=== PATIENT | female | born 1960 | race Caucasian/White ===

== ENCOUNTER → 2016-12-23 | Outpatient (CLI) | payer BC ==
[~2016-12-23] MED LIST: ATEN-173 PO; BUPRTAB51 PO; CALC1TAB27 PO; MISCCAP80 PO; MULTTAB58 PO; NUTRTAB48 PO; OMEG-27 PO; OMEP20CA59 PO
== END | disposition home or self-care (01) ==
LOC: C.CPL 15:03
PROVIDERS: ATTEND Orthopaedic Surgery Sports Medicine
DX: M75.41 Impingement syndrome of right shoulder (principal)

== ENCOUNTER → 2017-03-06 | Outpatient (CLI) | payer BC ==
[~2017-03-06] VITALS: Ht 156.2 cm; Wt 80.5 kg
[2017-03-06 14:34] VITALS: BP 111/74; PULSE 64; Ht 156.2 cm; Wt 80.5 kg
== END | disposition home or self-care (01) ==
LOC: C.NEUR 13:46
PROVIDERS: ATTEND Physician Assistant
DX: G47.33 Obstructive sleep apnea (adult) (pediatric) (principal)

== ENCOUNTER → 2017-05-18 | Outpatient (CLI) | payer BC ==
[2017-05-18 10:15] LABS: ESTIMATED AVERAGE GLUCOSE 114 mg/dl; HA1C FLAG Normal (Normal)
[2017-05-18 10:30] LABS: ALT/SGPT 27 U/L (12-78); BLOOD UREA NITROGEN 18 mg/dl (7-18); BUN/CREATININE RATIO 19.3 (10-20); CALCIUM 8.9 mg/dl (8.5-10.1); CARBON DIOXIDE 28 mmol/L (21-32); CHLORIDE 106 mmol/L (98-107); CHOLESTEROL 214 mg/dl (0-200); CREATININE 0.92 mg/dl (0.60-1.20); GLUCOSE 96 mg/dl (70-99); POTASSIUM 4.1 mmol/L (3.5-5.1); SODIUM 139 mmol/L (136-145)
[2017-05-18 10:41] LABS: ALKALINE PHOSPHATASE 62 U/L (45-117); AST/SGOT 11 U/L (15-37); CHOLESTEROL/HDL RATIO 3.8; HDL CHOLESTEROL 56 mg/dl; LDL CHOLESTEROL CALCULATED 139 mg/dl; TRIGLYCERIDES 93 mg/dl (0-150); VERY LOW DENSITY LIPOPROT CALC 19 mg/dl
== END | disposition home or self-care (01) ==
LOC: C.LAB1850 09:09
PROVIDERS: ATTEND Family Medicine
DX: I10 Essential (primary) hypertension (principal); R73.01 Impaired fasting glucose

== ENCOUNTER → 2017-05-26 | Outpatient (CLI) | payer BC ==
--- NOTE | 2017-05-26 13:57 | MAMMOGRAPHY REPORT ---
BILATERAL DIGITAL SCREENING MAMMOGRAM TOMOSYNTHESIS WITH CAD: 05/26/2017 CLINICAL HISTORY: Routine screening. Patient has no complaints. TECHNIQUE: Breast tomosynthesis in addition to standard 2D mammography was performed. Current study was also evaluated with a Computer Aided Detection (CAD) system. COMPARISON: Comparison is made to exams dated: 05/05/2016 mammogram, 12/08/2014 mammogram, 11/25/2013 m ammogram, 11/23/2012 mammogram, 11/10/2011 mammogram, and 11/09/2010 mammogram - [facility] nter. BREAST COMPOSITION: There are scattered areas of fibroglandular density in both breasts. FINDINGS: No suspicious masses, calcifications, or areas of architectural distortion are noted in ei ther breast. There has been no significant interval change compared to prior exams. Bilateral asymme tries and bilateral benign-appearing calcifications are not significantly changed. IMPRESSION: ACR BI-RADS CATEGORY 2: BENIGN There is no mammographic evidence of malignancy. A 1 year screening mammogram is recommended. The pa tient will receive written notification of the results. Approximately 10% of breast cancers are not detected with mammography. A negative mammographic report should not delay biopsy if a clinically suggestive mass is present. Natalie Leon M.D. /:05/26/2017 12:22:47 Body Mechanic Apprentice: Shonda DASILVA)(M), [facility] letter sent: Normal 1/2 BI-RADS Code: ACR BI-RADS Category 2: Benign
== END | disposition home or self-care (01) ==
LOC: C.MAMM 09:18
PROVIDERS: ATTEND Family Medicine
DX: Z12.31 Encounter for screening mammogram for malignant neoplasm of breast (principal)

== ENCOUNTER 2017-11-07 12:37 | Emergency (ER) | payer BC, OTHER ==
[~2017-11-07] VITALS: Ht 154.9 cm; Wt 80.0 kg
[2017-11-07 12:59] VITALS: BP 115/75; PULSE 59; TEMP 36.9; O2SAT 95; Ht 154.9 cm; Wt 80.0 kg
[2017-11-07] MEDS ORDERED: IBUPROFEN 600 MG TAB PO STA (13:45)
[2017-11-07] MEDS ORDERED: ACETAMINOPHEN 500 MG TAB PO STA (13:45)
[2017-11-07] MEDS ORDERED: TRAM-10 PO (13:48)
[2017-11-07] MEDS ORDERED: METH4PAK PO (13:48)
--- NOTE | 2017-11-07 14:55 | EMERGENCY ROOM VISIT NOTE ---
History First contact with patient: 13:32 Chief Complaint: LEG PAIN,LEG INJURY Stated Complaint: R LEG LOCKED UP, UNABLE TO STAND, EXTREME PAIN History of Present Illness The patient is a 57 year old female who presents to the Emergency Room with complaints of her right lower extremity being locked up and unable to walk and stand. The patient reports that she has recently been treated for piriformis syndrome. She also reports a history of chronic lower back issues. The patient reports that she has tingling and numbness intermittently extending down the right leg to the foot. She denies any bladder or bowel incontinence, saddle anesthesias or foot drop. The patient reports that she has followed with her PCP for this. Over 2 months ago, she was treated with a Medrol Dosepak with relief. She has not had an MRI of the lumbar spine or other interventional procedures. Patient denies any recent trauma or overuse, and rates her discomfort a 9 out of 10. Review of Systems 10 system review was performed and was negative except for pertinent positives and negatives as indicated in history of present illness Past Medical/Surgical History Medical Problems: (1) Anxiety State Nos (2) Asthma (3) Bronchitis (4) Dysmetabolic Syndrome X (5) Hypertension Nos (6) Lumbago (7) Reflux Esophagitis (8) Sleep Apnea, Unspecified (9) Vitamin D Deficiency, Unspecified Surgical Problems: (1) History of arthroscopy of right shoulder (2) Status post bunionectomy Family History FH: cancer FH: diabetes mellitus FH: hypertension Social History Smoking Status: Never Smoker Alcohol Use: none Drug Use: none Marital Status: Occupation Status: employed Current/Historical Medications Scheduled Atenolol (Tenormin), 12.5 MG PO DAILY Bupropion (Wellbutrin-Xl), 150 MG PO DAILY Xbwepie-Krjkpcixq-Klxb (Calcium Magnesium & Zinc), PO DAILY Methylprednisolone (Medrol Dosepak), 0 PO DAILY Multiple Vitamin (Multivitamin), 1 TAB PO DAILY Nutritional Supplements (Glucosamine Complex), PO DAILY Howard-3 Fatty Acids (Fish Oil), 2 TABS PO DAILY Omeprazole (Prilosec), 20 MG PO DAILY Probiotic Product (Probiotic), 1 CAP PO DAILY Scheduled PRN Tramadol (Ultram), 1-2 TAB PO Q4H PRN for Pain Physical Exam Vital Signs Date Time Temp Pulse Resp B/P (MAP) Pulse Ox O2 Delivery O2 Flow Rate FiO2 11/07/17 12:59 36.9 59 20 115/75 95 Room Air Physical Exam CONSTITUTIONAL: Healthy and well nourished. Alert and oriented X 3 with positive affect. Patient appears in mild discomfort from pain. HEENT: Normocephalic, atraumatic. Pupils equal, round and reactive. NECK: Full active range of motion without discomfort. RESPIRATORY: Clear to auscultation bilaterally with no wheezing, crackles, rhonchi or stridor. CARDIOVASCULAR: Regular rate and rhythm with no murmurs, rubs or gallops. GASTROINTESTINAL: Bowel sounds present in all quadrants. Soft and nontender to palpation. MUSCULOSKELETAL: Examination shows mixed findings that are inconclusive. The patient initially had a positive logroll of the right hip, however when the hip is flexed, internal and external rotation does not worsen discomfort. She has mild tenderness to palpation through the posterior thigh and hamstrings. She has minimal tenderness through the medial joint line of the knee, however no focal findings. Ligamentous exam is normal. Negative straight leg raise. No focal tenderness to palpation over the greater trochanteric region. Pedal pulses are intact. Ankle plantar/dorsiflexion strength is 5 out of 5 and symmetric bilaterally. INTEGUMENTARY: No rash or other significant dermatologic conditions noted. NEUROLOGIC: Cranial nerves II-XII grossly intact. No focal neurologic deficits noted. Right lower extremity is sensory intact with deep tendon reflexes 2+ and symmetric bilaterally. Medical Decision & Procedures Medications Administered Medications (Trade) Dose Ordered Sig/Jose Roberto Route Start Time Stop Time Status Last Admin Dose Admin Ibuprofen (Motrin Tab) 600 mg NOW STAT PO 11/07/17 13:45 11/07/17 13:47 DC 11/07/17 13:51 600 MG Acetaminophen (Tylenol Tab) 1,000 mg NOW STAT PO 11/07/17 13:45 11/07/17 13:47 DC 11/07/17 13:52 1,000 MG ED Course Patient history and physical exam were performed. Nurse's notes were reviewed. Vital signs were reviewed and were also normal. The patient was advised that her history and clinical exam findings are most consistent with acute lumbar radiculitis. The patient will be treated with another Medrol Dosepak, and encouraged to alternate ibuprofen and Tylenol for baseline pain relief. She was provided a prescription for Ultram if needed for additional breakthrough pain. The patient reports that she does still have crutches at home from her bunionectomy surgery. She was encouraged to use crutches as needed to limit weight on the right lower extremity, and to lower risk for falling. She was encouraged to follow-up with her PCP for further reevaluation. The patient was happy with plan of care, voiced understanding of all discharge instructions, and rated her discomfort a 5 out of 10 at the conclusion of my exam. The patient was administered both ibuprofen and Tylenol prior to discharge. Medical Decision Medication Reconcilliation Current Medication List: was personally reviewed by me Blood Pressure Screening Patient's blood pressure: Normal blood pressure Impression Primary Impression: Right lumbar radiculitis Departure Information Dispostion Home / Self-Care Condition GOOD Prescriptions Tramadol (Ultram) 50 Mg Tab 1-2 TAB PO Q4H Y for Pain, #30 TAB For Initial Treatment Prov: Odin Grady PA 11/07/17 Methylprednisolone (MEDROL DOSEPAK) 4 Mg Ken 0 PO DAILY, #1 PKT Prov: Odin Grady PA 11/07/17 Forms HOME CARE DOCUMENTATION FORM, IMPORTANT VISIT INFORMATION Patient Instructions My [facility] Additional Instructions Intermittently apply ice to lower back and buttock region. Use crutches - minimal weight on right lower extremity until symptoms improve. Ibuprofen 800 mg and/or Tylenol 1000 mg every 8 hours. You may also alternate these medications for more effective pain relief: Ibuprofen --4 HRS--> Tylenol --4 HRS--> ibuprofen --4 HRS--> Tylenol .... Ultram if needed for worse pain. Complete Medrol Dosepak as prescribed, next dose tomorrow morning. Follow-up with your family doctor as needed for any persistent symptoms.
== END 2017-11-07 14:08 | disposition home or self-care (01) ==
LOC: C.EDB 12:38 → C.EDD 14:08
DX: M54.16 Radiculopathy, lumbar region (principal); Z79.899 Other long term (current) drug therapy; F41.9 Anxiety disorder, unspecified; E88.81 Metabolic syndrome and other insulin resistance; I10 Essential (primary) hypertension

== ENCOUNTER → 2017-11-15 | Outpatient (CLI) | payer OTHER ==
[~2017-11-15] MED LIST changes: +METH4PAK PO; +TRAM-10 PO
--- NOTE | 2017-11-15 10:32 | DIAGNOSTIC IMAGING REPORT ---
MRI LUMBAR SPINE W/O CONTRAST CLINICAL HISTORY: Back pain with right leg radiculopathy. TECHNIQUE: Sagittal and axial T1, T2 and STIR images were obtained. COMPARISON STUDY: No previous studies for comparison. OBSERVATIONS: The vertebral bodies and posterior elements appear intact. There is no abnormal bony signal present to suggest a marrow replacement process. L1-2: No disc protrusions or extrusions. No evidence of spinal canal or neural foraminal compromise. L2-3: No disc protrusions or extrusions. No evidence of spinal canal or neural foraminal compromise. L3-4: No disc protrusions or extrusions. No evidence of spinal canal or neural foraminal compromise. L4-5: There is a mild circumferential disc bulge. There is a minimal grade 1 spondylolisthesis of L4 on L5. There is facet joint arthropathy. There is mild triangular spinal canal narrowing. There is no significant foraminal stenosis L5-S1: No disc protrusions or extrusions. No evidence of spinal canal or neural foraminal compromise. There is facet joint arthropathy. The conus medullaris and cauda equina appear normal. IMPRESSION: Mild disc bulge, grade 1 spondylolisthesis of L4 on L5, facet joint arthropathy, and mild spinal stenosis at the L4-5 level.. Electronically signed by: Misael Benitez M.D. 11/15/2017 10:30 AM Dictated Date/Time: 11/15/2017 10:26 AM
== END | disposition home or self-care (01) ==
LOC: C.MRI 09:39
PROVIDERS: ATTEND Family Medicine
DX: M43.16 Spondylolisthesis, lumbar region (principal); M46.96 Unspecified inflammatory spondylopathy, lumbar region

== ENCOUNTER → 2017-11-17 | Outpatient (CLI) | payer OTHER ==
[2017-11-17 09:31] LABS: HEMATOCRIT 38.5 % (37-47); HEMOGLOBIN 12.8 g/dL (12.0-16.0); MEAN CELL VOLUME 91.9 fL (80-100); MEAN CORPUSCULAR HEMOGLOBIN 30.5 pg (25-34); MEAN CORPUSCULAR HGB CONC 33.2 g/dl (32-36); MEAN PLATELET VOLUME 9.7 fL (7.4-10.4); PLATELET COUNT 250 K/uL (130-400); RED CELL DISTRIBUTION WIDTH CV 12.7 % (11.5-14.5); RED CELL DISTRIBUTION WIDTH SD 42.5 fL (36.4-46.3); WHITE BLOOD COUNT 6.55 K/uL (4.8-10.8)
[2017-11-17 09:48] LABS: BLOOD UREA NITROGEN 17 mg/dl (7-18); CALCIUM 8.8 mg/dl (8.5-10.1); CARBON DIOXIDE 29 mmol/L (21-32); CHOLESTEROL 178 mg/dl (0-200); CREATININE 0.86 mg/dl (0.60-1.20); GLUCOSE 94 mg/dl (70-99); SODIUM 140 mmol/L (136-145)
[2017-11-17 09:52] LABS: LDL CHOLESTEROL CALCULATED 101 mg/dl
[2017-11-17 10:28] LABS: HEMOGLOBIN A1C 5.7 % (4.5-5.6)
== END | disposition home or self-care (01) ==
LOC: C.LAB1850 08:29
PROVIDERS: ATTEND Family Medicine
DX: Z11.59 Encounter for screening for other viral diseases (principal); I10 Essential (primary) hypertension; R73.01 Impaired fasting glucose; E78.5 Hyperlipidemia, unspecified

== ENCOUNTER → 2017-12-20 | Outpatient (CLI) | payer OTHER ==
[~2017-12-20] MED LIST changes: -METH4PAK PO
== END | disposition home or self-care (01) ==
LOC: C.CPL 15:17
PROVIDERS: ATTEND Orthopaedic Surgery Sports Medicine
DX: Z01.818 Encounter for other preprocedural examination (principal); S83.231D Complex tear of medial meniscus, current injury, right knee, subsequent encounter; X58.XXXD Exposure to other specified factors, subsequent encounter

== ENCOUNTER → 2018-05-25 | Outpatient (CLI) | payer OTHER ==
[~2018-05-25] MED LIST changes: -TRAM-10 PO
[2018-05-25 10:40] LABS: HEMOGLOBIN A1C 5.9 % (4.5-5.6)
[2018-05-25 10:51] LABS: BLOOD UREA NITROGEN 17 mg/dl (7-18); CALCIUM 8.5 mg/dl (8.5-10.1); CARBON DIOXIDE 27 mmol/L (21-32); CHOLESTEROL 203 mg/dl (0-200); GLUCOSE 97 mg/dl (70-99); LDL CHOLESTEROL CALCULATED 122 mg/dl; POTASSIUM 3.9 mmol/L (3.5-5.1); SODIUM 139 mmol/L (136-145)
== END | disposition home or self-care (01) ==
LOC: C.LAB1850 09:19
PROVIDERS: ATTEND Family Medicine
DX: Z13.220 Encounter for screening for lipoid disorders (principal); I10 Essential (primary) hypertension; R73.01 Impaired fasting glucose; E78.5 Hyperlipidemia, unspecified

== ENCOUNTER → 2018-05-30 | Outpatient (CLI) | payer OTHER ==
--- NOTE | 2018-05-31 15:40 | MAMMOGRAPHY REPORT ---
BILATERAL DIGITAL SCREENING MAMMOGRAM TOMOSYNTHESIS WITH CAD: 05/30/2018 CLINICAL HISTORY: Routine screening. Patient has no complaints. TECHNIQUE: The study was acquired using full field digital technology and interpreted from soft copy. Breast tomosynthesis in addition to standard 2D mammography was performed. Current study was also ev aluated with a Computer Aided Detection (CAD) system. COMPARISON: Comparison is made to exams dated: 05/26/2017 mammogram, 05/05/2016 mammogram, 06/17/2015 ma mmogram, 12/12/2014 mammogram, 12/08/2014 mammogram, and 11/25/2013 mammogram - [facility]ter. BREAST COMPOSITION: There are scattered areas of fibroglandular density in both breasts. FINDINGS: The parenchymal pattern is similar to prior mammograms including stable asymmetries bilaterally. Scat tered benign appearing calcifications. No developing mass, architectural distortion or cluster of tam picious microcalcifications is seen in either breast. IMPRESSION: ACR BI-RADS CATEGORY 2: BENIGN There is no mammographic evidence of malignancy. A 1 year screening mammogram is recommended.( [id number]) The patient will receive written notification of the results. Some breast cancers are not detected with mammography. A negative mammographic report should not giuseppe y biopsy if a clinically suggestive mass is present. Marie Aragon M.D. ay/:05/30/2018 16:01:00 Rehabilitation Program Manager: RT Ginger(R)(M)(BD), [facility] letter sent: Normal 1/2 BI-RADS Code: ACR BI-RADS Category 2: Benign
== END | disposition home or self-care (01) ==
LOC: C.MAMM 11:19
PROVIDERS: ATTEND Family Medicine
DX: Z12.31 Encounter for screening mammogram for malignant neoplasm of breast (principal)

== ENCOUNTER → 2018-06-08 | Outpatient (CLI) | payer OTHER ==
[~2018-06-08] VITALS: Ht 156.2 cm; Wt 82.4 kg
[2018-06-08 16:18] VITALS: BP 120/76; PULSE 69; Ht 156.2 cm; Wt 82.4 kg
== END | disposition home or self-care (01) ==
LOC: C.NEUR 15:47
PROVIDERS: ATTEND Internal Medicine Pulmonary Disease
DX: G47.33 Obstructive sleep apnea (adult) (pediatric) (principal); Z88.0 Allergy status to penicillin; Z88.2 Allergy status to sulfonamides; Z91.013 Allergy to seafood; Z91.048 Other nonmedicinal substance allergy status